=== PATIENT | female | born 1955 | race Caucasian/White ===

== ENCOUNTER → 2021-01-22 08:34 | Outpatient (CLI) | payer OTHER ==
[~2021-01-22 08:34] MED LIST: MAXITROL EYE DRO5 ML OP; NABUMETONE750 MG PO; NAPROXEN500 MG PO; SIMETHICONE180 MG PO; ZITHROMAX500 MG PO
== END | disposition home or self-care (01) ==
LOC: LAB 08:34
PROVIDERS: ATTEND Internal Medicine Cardiovascular Disease
DX: E78.2 Mixed hyperlipidemia (principal); I10 Essential (primary) hypertension; E11.9 Type 2 diabetes mellitus without complications; E03.9 Hypothyroidism, unspecified; E55.9 Vitamin D deficiency, unspecified; Z12.11 Encounter for screening for malignant neoplasm of colon; Z12.31 Encounter for screening mammogram for malignant neoplasm of breast

== ENCOUNTER 2021-01-22 09:28 | Outpatient (CLI) | payer OTHER | END 2021-01-22 09:31 | disposition home or self-care (01) | LOC: MAMO-SONO 09:28 | PROVIDERS: ATTEND Internal Medicine Cardiovascular Disease | DX: N63.11 Unspecified lump in the right breast, upper outer quadrant (principal); Z12.31 Encounter for screening mammogram for malignant neoplasm of breast ==

== ENCOUNTER → 2021-04-28 10:20 | Outpatient (CLI) | payer OTHER | END | disposition home or self-care (01) | LOC: LAB 10:20 | PROVIDERS: ATTEND Internal Medicine Cardiovascular Disease | DX: I10 Essential (primary) hypertension (principal); E11.9 Type 2 diabetes mellitus without complications; E03.8 Other specified hypothyroidism; E78.2 Mixed hyperlipidemia ==

== ENCOUNTER → 2021-04-28 | Outpatient (CLI) | payer OTHER | END | disposition home or self-care (01) | LOC: NUCLEAR 11:28 | PROVIDERS: ATTEND Internal Medicine Cardiovascular Disease | DX: M81.0 Age-related osteoporosis without current pathological fracture (principal) ==

== ENCOUNTER 2021-07-01 09:00 | Outpatient (CLI) | payer OTHER | END 2021-07-01 09:30 | disposition home or self-care (01) | LOC: PPH VACUNA 09:00 | PROVIDERS: ATTEND Emergency Medicine Pediatric Emergency Medicine | DX: Z23 Encounter for immunization (principal) ==

== ENCOUNTER 2022-01-04 10:41 | Outpatient (CLI) | payer OTHER | END 2022-01-04 10:45 | disposition home or self-care (01) | LOC: LAB 10:41 | PROVIDERS: ATTEND Internal Medicine Cardiovascular Disease | DX: E03.9 Hypothyroidism, unspecified (principal); I10 Essential (primary) hypertension; E11.9 Type 2 diabetes mellitus without complications; E78.2 Mixed hyperlipidemia; E55.9 Vitamin D deficiency, unspecified; Z12.11 Encounter for screening for malignant neoplasm of colon ==

== ENCOUNTER 2022-04-14 07:11 | Outpatient (CLI) | payer OTHER | END 2022-04-14 07:18 | disposition home or self-care (01) | LOC: LAB 07:11 | PROVIDERS: ATTEND Internal Medicine Cardiovascular Disease | DX: E78.2 Mixed hyperlipidemia (principal); I10 Essential (primary) hypertension; E11.9 Type 2 diabetes mellitus without complications ==

== ENCOUNTER 2022-10-12 09:14 | Outpatient (CLI) | payer OTHER | END 2022-10-12 14:54 | disposition home or self-care (01) | LOC: LAB 09:14 | PROVIDERS: ATTEND Internal Medicine Cardiovascular Disease | DX: E03.9 Hypothyroidism, unspecified (principal); I10 Essential (primary) hypertension; E11.9 Type 2 diabetes mellitus without complications; E78.2 Mixed hyperlipidemia; Z12.11 Encounter for screening for malignant neoplasm of colon ==

== ENCOUNTER 2022-10-25 08:31 | Outpatient (CLI) | payer OTHER | END 2022-10-25 08:37 | disposition home or self-care (01) | LOC: EDBD 08:31 → MAMO-SONO 08:31 | PROVIDERS: ATTEND Internal Medicine Cardiovascular Disease | DX: N63.11 Unspecified lump in the right breast, upper outer quadrant (principal) ==

== ENCOUNTER → 2023-07-20 09:12 | Outpatient (CLI) | payer OTHER ==
[2023-07-20 10:01] LABS: PH,URINE 6.5 (5.0-8.0); URINE APPEARANCE Clear; URINE BILIRRUBIN Negative (NEGATIVE); URINE BLOOD Negative; URINE COLOR Yellow; URINE GLUCOSE Negative (NEGATIVE); URINE LEUKOCYTE Negative; URINE NITRATE Negative; URINE PROTEIN Negative (NEGATIVE); URINE UROBILINOGEN 0.2 E.U./dl
[2023-07-20 10:09] LABS: URINE BACTERIA 91.9 uL (0.0-1933); URINE RBC 7.4 uL (0.0-20.8)
[2023-07-20 10:15] LABS: HEMATOCRIT 35.6 % (36.0-45.00); HEMOGLOBIN 12.1 g/dL (12.0-15.00); MEAN CELL VOLUME 80.9 fL (80.00-100.00); MEAN CORPUSCULAR HEMOGLOBIN 27.5 pg (27.00-32.0); PLATELET COUNT 273 K/uL (150-450); RED CELL DISTRIBUTION WIDTH 13.6 % (11.5-14.5)
[2023-07-20 10:50] LABS: URINE WBC 1.6 uL (0.0-23.2)
[2023-07-20 11:02] LABS: CHOL HDL RATIO 3.2 (0-5.0); CREATININE SERUM 0.62 mg/dL (0.55-1.02); GFR 95.44; POTASSIUM 4.24 mEq/L (3.5-5.1)
== END | disposition home or self-care (01) ==
LOC: LAB 09:12
PROVIDERS: ATTEND Internal Medicine Cardiovascular Disease
DX: E78.2 Mixed hyperlipidemia (principal); I10 Essential (primary) hypertension

== ENCOUNTER 2023-11-02 09:39 | Outpatient (CLI) | payer OTHER | END 2023-11-02 09:47 | disposition home or self-care (01) | LOC: MAMO-SONO 09:39 | PROVIDERS: ATTEND Internal Medicine Cardiovascular Disease | DX: N60.12 Diffuse cystic mastopathy of left breast (principal); N60.11 Diffuse cystic mastopathy of right breast; Z12.31 Encounter for screening mammogram for malignant neoplasm of breast ==

== ENCOUNTER 2024-03-07 10:16 | Outpatient (CLI) | payer OTHER ==
[2024-03-07 11:09] LABS: URINE APPEARANCE Clear; URINE BILIRRUBIN Negative (NEGATIVE); URINE BLOOD Negative; URINE COLOR Yellow; URINE GLUCOSE Negative (NEGATIVE); URINE LEUKOCYTE Negative; URINE NITRATE Negative; URINE PROTEIN Negative (NEGATIVE); URINE UROBILINOGEN 0.2 E.U./dl
[2024-03-07 11:13] LABS: HEMATOCRIT 34.6 % (36.0-45.00); HEMOGLOBIN 11.7 g/dL (12.0-15.00); MEAN CELL VOLUME 80.2 fL (80.00-100.00); MEAN CORPUSCULAR HEMOGLOBIN 27.1 pg (27.00-32.0); MEAN CORPUSCULAR HGB CONC 33.7 g/dl (32.0-36.0); PLATELET COUNT 326 K/uL (150-450); RED BLOOD COUNT 4.31 M/uL (4.00-6.00)
[2024-03-07 11:14] LABS: URINE BACTERIA 386.7 uL (0.0-1933); URINE EPITHELIAL CELLS 16.6 uL (0.0-38.8); URINE RBC 9.1 uL (0.0-20.8); URINE WBC 7.1 uL (0.0-23.2)
[2024-03-07 11:47] LABS: CALCIUM 9.1 mg/dL (8.5-10.1); CHOL HDL RATIO 3.1 (0-5.0); CREATININE SERUM 0.55 mg/dL (0.55-1.02); GFR 109.59; POTASSIUM 4.3 mEq/L (3.5-5.1)
== END 2024-03-07 10:21 | disposition home or self-care (01) ==
LOC: LAB 10:16
PROVIDERS: ATTEND Internal Medicine Cardiovascular Disease
DX: E11.9 Type 2 diabetes mellitus without complications (principal); I10 Essential (primary) hypertension; E78.2 Mixed hyperlipidemia

== ENCOUNTER → 2024-03-12 10:06 | Outpatient (CLI) | payer OTHER | END | disposition home or self-care (01) | LOC: SONOGRAMA 10:06 | PROVIDERS: ATTEND Internal Medicine Cardiovascular Disease | DX: M12.9 Arthropathy, unspecified (principal) ==

== ENCOUNTER 2024-06-06 08:49 | Outpatient (CLI) | payer OTHER ==
[2024-06-06 09:42] LABS: HEMATOCRIT 34.4 % (36.0-45.00); HEMOGLOBIN 11.5 g/dL (12.0-15.00); MEAN CORPUSCULAR HEMOGLOBIN 26.8 pg (27.00-32.0); MEAN CORPUSCULAR HGB CONC 33.6 g/dl (32.0-36.0); PLATELET COUNT 298 K/uL (150-450); RED CELL DISTRIBUTION WIDTH 13.7 % (11.5-14.5)
[2024-06-06 09:51] LABS: URINE APPEARANCE Clear; URINE BILIRRUBIN Negative (NEGATIVE); URINE BLOOD Negative; URINE COLOR Yellow; URINE GLUCOSE Negative (NEGATIVE); URINE KETONE Negative (NEGATIVE); URINE LEUKOCYTE Negative; URINE NITRATE Negative; URINE PROTEIN Negative (NEGATIVE); URINE UROBILINOGEN 0.2 E.U./dl
[2024-06-06 09:53] LABS: URINE BACTERIA 1267.1 uL (0.0-1933); URINE EPITHELIAL CELLS 11.4 uL (0.0-38.8); URINE RBC 9.4 uL (0.0-20.8); URINE WBC 7.1 uL (0.0-23.2)
[2024-06-06 09:55] LABS: URINE CAST 0.76 uL (0.0-1.40)
[2024-06-06 10:59] LABS: CALCIUM 9.1 mg/dL (8.5-10.1); CHOL HDL RATIO 3.1 (0-5.0); CREATININE SERUM 0.64 mg/dL (0.55-1.02); GFR 91.74; POTASSIUM 4.19 mEq/L (3.5-5.1)
== END 2024-06-06 08:50 | disposition home or self-care (01) ==
LOC: LAB 08:49
PROVIDERS: ATTEND Internal Medicine Cardiovascular Disease
DX: E11.9 Type 2 diabetes mellitus without complications (principal); I10 Essential (primary) hypertension; E03.9 Hypothyroidism, unspecified; E78.2 Mixed hyperlipidemia

== ENCOUNTER → 2024-09-05 08:49 | Outpatient (CLI) | payer OTHER ==
[2024-09-05 09:53] LABS: URINE APPEARANCE Clear; URINE BILIRRUBIN Negative (NEGATIVE); URINE BLOOD Negative; URINE COLOR Yellow; URINE GLUCOSE Negative (NEGATIVE); URINE KETONE Negative (NEGATIVE); URINE LEUKOCYTE Negative; URINE NITRATE Negative; URINE PROTEIN Negative (NEGATIVE); URINE UROBILINOGEN 0.2 E.U./dl
[2024-09-05 09:57] LABS: HEMATOCRIT 37.3 % (36.0-45.00); HEMOGLOBIN 12.6 g/dL (12.0-15.00); MEAN CORPUSCULAR HGB CONC 33.7 g/dl (32.0-36.0); PLATELET COUNT 289 K/uL (150-450); RED BLOOD COUNT 4.66 M/uL (4.00-6.00)
[2024-09-05 09:58] LABS: URINE BACTERIA 1080.6 uL (0.0-1933); URINE EPITHELIAL CELLS 9.3 uL (0.0-38.8); URINE RBC 8.6 uL (0.0-20.8); URINE WBC 9.6 uL (0.0-23.2)
[2024-09-05 10:12] LABS: URINE CAST 0.14 uL (0.0-1.40)
[2024-09-05 11:02] LABS: ob NEGATIVE (NEGATIVE)
[2024-09-05 11:04] LABS: ALBUMIN 3.7 gm/dL (3.4-5.0); BILIRUBIN TOTAL 0.42 mg/dL (0.3-1.2); CALCIUM 9.4 mg/dL (8.5-10.1); CHOL HDL RATIO 3.8 (0-5.0); CREATININE SERUM 0.58 mg/dL (0.55-1.02); GFR 102.77; GLOBULINA 3.5 G/DL (2.4-3.5); POTASSIUM 4.35 mEq/L (3.5-5.1); T4 TOTAL 10.53 UG/DL (4.8-13.9); TOTAL PROTEIN 7.2 gm/dL (6.4-8.2); TSH 1.31 uIU/mL (0.358-3.74)
[2024-09-05 11:05] LABS: T3 TOTAL 1.48 ng/ml (0.846-2.02); VITAMIN D3 25 HYDROXY 31.46 ng/ml (30-120)
== END | disposition home or self-care (01) ==
LOC: LAB 08:49
PROVIDERS: ATTEND Internal Medicine Cardiovascular Disease
DX: I10 Essential (primary) hypertension (principal); E11.9 Type 2 diabetes mellitus without complications; E03.9 Hypothyroidism, unspecified; E78.2 Mixed hyperlipidemia; D64.0 Hereditary sideroblastic anemia; Z12.11 Encounter for screening for malignant neoplasm of colon; E55.9 Vitamin D deficiency, unspecified; M81.0 Age-related osteoporosis without current pathological fracture

== ENCOUNTER 2024-12-03 12:35 | Outpatient (CLI) | payer OTHER ==
[2024-12-03 13:22] LABS: HEMATOCRIT 36.8 % (36.0-45.00); HEMOGLOBIN 12.3 g/dL (12.0-15.00); MEAN CELL VOLUME 81.6 fL (80.00-100.00); MEAN CORPUSCULAR HEMOGLOBIN 27.2 pg (27.00-32.0); MEAN CORPUSCULAR HGB CONC 33.3 g/dl (32.0-36.0); PH,URINE 5.5 (5.0-8.0); PLATELET COUNT 274 K/uL (150-450); RED BLOOD COUNT 4.51 M/uL (4.00-6.00); RED CELL DISTRIBUTION WIDTH 13.4 % (11.5-14.5); URINE APPEARANCE Clear; URINE BILIRRUBIN Negative (NEGATIVE); URINE BLOOD Trace; URINE COLOR Yellow; URINE GLUCOSE Negative (NEGATIVE); URINE KETONE Negative (NEGATIVE); URINE LEUKOCYTE Negative; URINE NITRATE Negative; URINE PROTEIN Negative (NEGATIVE); URINE UROBILINOGEN 0.2 E.U./dl
[2024-12-03 13:24] LABS: URINE EPITHELIAL CELLS 15.6 uL (0.0-38.8); URINE RBC 11.3 uL (0.0-20.8); URINE WBC 6.6 uL (0.0-23.2)
[2024-12-03 13:27] LABS: URINE CAST 0.14 uL (0.0-1.40)
[2024-12-03 14:11] LABS: CALCIUM 9.1 mg/dL (8.5-10.1); CHOL HDL RATIO 3.5 (0-5.0); CREATININE SERUM 0.67 mg/dL (0.55-1.02); GFR 87.01; POTASSIUM 4.24 mEq/L (3.5-5.1); T4 TOTAL 9.65 UG/DL (4.8-13.9); TSH 0.585 uIU/mL (0.358-3.74)
== END 2024-12-03 23:00 | disposition home or self-care (01) ==
LOC: LAB 12:35
PROVIDERS: ATTEND Internal Medicine Cardiovascular Disease
DX: I10 Essential (primary) hypertension (principal); E03.9 Hypothyroidism, unspecified; E11.9 Type 2 diabetes mellitus without complications; E78.2 Mixed hyperlipidemia

== ENCOUNTER 2025-03-01 09:01 | Outpatient (CLI) | payer OTHER ==
[2025-03-01 09:48] LABS: BASO % 0.8 % (0.1-1.2); EOS # 0.13 (0.04-0.54); EOS % 2.0 % (0.7-7.0); LYMPH # 2.56 (1.18-3.74); LYMPH % 39.1 % (19.3-53.1); MEAN PLATELET VOLUME 10.10 fl (9.4-12.4); MONO # 0.44 (0.24-0.82); MONO % 6.7 % (4.7-12.5); NEUT # 3.34 (1.56-6.13); NEUT % 51.1 % (34.0-71.1); RED CELL DISTRIBUTION WIDTH 12.8 % (11.6-14.4)
[2025-03-01 09:52] LABS: URINE APPEARANCE Clear; URINE BILIRRUBIN Negative (NEGATIVE); URINE BLOOD Negative; URINE COLOR Yellow; URINE GLUCOSE Negative (NEGATIVE); URINE KETONE Trace (NEGATIVE); URINE LEUKOCYTE Negative; URINE NITRATE Negative; URINE PROTEIN Negative (NEGATIVE); URINE UROBILINOGEN 0.2 E.U./dl
[2025-03-01 09:55] LABS: URINE BACTERIA 1143.5 uL (0.0-1933); URINE EPITHELIAL CELLS 17.0 uL (0.0-38.8); URINE RBC 6.4 uL (0.0-20.8); URINE WBC 17.5 uL (0.0-23.2)
[2025-03-01 09:58] LABS: URINE CAST 0.87 uL (0.0-1.40)
[2025-03-01 10:47] LABS: BUN CREA RATIO 21.0 (7.0-25.0); CHOL HDL RATIO 4.5 (0-5.0); CREATININE SERUM 0.73 mg/dL (0.55-1.02); GFR 78.81; GLUCOSE FASTING 98.0 mg/dL (65-100); HDL 51.0 mg/dl (40-60); LDL 125.0 mg/dl (0-130); OSMOLALITY SERUM 284.0 MOSM/KG (275-295); VLDL 56.0 (0-39)
== END 2025-03-01 09:03 | disposition home or self-care (01) ==
LOC: LAB 09:01
PROVIDERS: ATTEND Internal Medicine Cardiovascular Disease
DX: E11.9 Type 2 diabetes mellitus without complications (principal); I10 Essential (primary) hypertension; E03.9 Hypothyroidism, unspecified; E78.2 Mixed hyperlipidemia

== ENCOUNTER 2025-06-03 08:52 | Outpatient (CLI) | payer OTHER ==
[2025-06-03 10:09] LABS: BASO % 0.7 % (0.1-1.2); EOS # 0.17 (0.04-0.54); EOS % 2.8 % (0.7-7.0); LYMPH # 2.29 (1.18-3.74); LYMPH % 37.8 % (19.3-53.1); MEAN PLATELET VOLUME 10.30 fl (9.4-12.4); MONO # 0.44 (0.24-0.82); MONO % 7.3 % (4.7-12.5); NEUT # 3.11 (1.56-6.13); NEUT % 51.2 % (34.0-71.1); RED CELL DISTRIBUTION WIDTH 13.0 % (11.6-14.4)
[2025-06-03 10:10] LABS: URINE APPEARANCE Clear; URINE BILIRRUBIN Negative (NEGATIVE); URINE BLOOD Negative; URINE COLOR Yellow; URINE GLUCOSE Negative (NEGATIVE); URINE KETONE Negative (NEGATIVE); URINE LEUKOCYTE Negative; URINE NITRATE Negative; URINE PROTEIN Negative (NEGATIVE); URINE UROBILINOGEN 0.2 E.U./dl
[2025-06-03 10:15] LABS: URINE BACTERIA 215.9 uL (0.0-1933); URINE EPITHELIAL CELLS 10.9 uL (0.0-38.8); URINE RBC 7.7 uL (0.0-20.8); URINE WBC 5.9 uL (0.0-23.2)
[2025-06-03 10:19] LABS: URINE CAST 0.14 uL (0.0-1.40)
[2025-06-03 11:28] LABS: BUN CREA RATIO 23.0 (7.0-25.0); CHOL HDL RATIO 4.3 (0-5.0); CREATININE SERUM 0.61 mg/dL (0.55-1.02); GFR 96.68; GLUCOSE FASTING 114.0 mg/dL (65-100); HDL 54.0 mg/dl (40-60); LDL 117.0 mg/dl (0-130); OSMOLALITY SERUM 288.0 MOSM/KG (275-295); T4 TOTAL 8.46 UG/DL (4.8-13.9); TSH 0.996 uIU/mL (0.358-3.74); VLDL 58.0 (0-39)
== END 2025-06-03 09:00 | disposition home or self-care (01) ==
LOC: LAB 08:52
PROVIDERS: ATTEND Internal Medicine Cardiovascular Disease
DX: E03.9 Hypothyroidism, unspecified (principal); E78.2 Mixed hyperlipidemia; I10 Essential (primary) hypertension; R73.03 Prediabetes